=== PATIENT | male | born 1945 | race Caucasian/White ===

== ENCOUNTER 2022-12-26 10:05 | Observation (INO) ==
--- NOTE | 2022-12-26 11:02 | Emergency Department Note ---
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 fib on Eliquis who presents to the ER for shortness of breath. He notes he is feeling very weak and rundown with any kind of exertion. This has been going on for the past week. This generally feels consistent with his previous bouts of A. fib. Denies any chest pain. No belly pain, nausea, vomiting, or diarrhea. No dysuria, urgency, or frequency. No other exacerbating or remitting factors. He recently just moved here to the area. PAST MEDICAL HISTORY:See Below PAST SURGICAL HISTORY:See Below FAMILY HISTORY:See Below SOCIAL HISTORY:See Below HOME MEDICATIONS:See Below ALLERGIES:See Below VITALS:See Below PHYSICAL EXAMINATION: GENERAL: Sitting up in bed, alert, well appearing, well nourished, no distress, non-toxic EYE EXAM: normal conjunctiva. PERRL and EOM's grossly intact. OROPHARYNX: no exudate, no erythema, lips, buccal mucosa, and tongue normal and mucous membranes are moist NECK: supple, no nuchal rigidity, no adenopathy, non-tender LUNGS: Clear to auscultation. Normal chest wall mechanics HEART: Irregular regular, S1 normal and S2 normal ABDOMEN: abdomen soft, non-tender, normo-active bowel sounds, no masses, no rebound or guarding. UPPER EXTREMITIES: upper extremities are grossly normal. LOWER EXTREMITIES: No pitting edema. NEURO EXAM: Normal sensorium, cranial nerves II-XII grossly intact, normal speech, no gross weakness of arms, no gross weakness of legs. No drift. Finger to nose intact. Gross sensation intact. MEDICAL DECISION MAKING: Patient is a 77-year-old male who presents the ER for feeling irregular heartbeat referred in by his PCP. IV was established blood work was obtained. Labs show no significant leukocytosis or anemia. BMP with a slightly elevated glucose at 178. LFTs was unremarkable. Troponin was negative. Lipase is normal. COVID-negative. EKG consistent with A. fib. Chest x-ray was unrem arkable. Patient was updated at bedside. He is fairly rate controlled while sitting but notes that he gets significantly short of breath with exertion and is normally in a sinus rhythm. Based on this I discussed case with Dr. Marcus Savage for further evaluation. Also discussed with case management in regards to presentation work-up and further management. Triage Nursing notes reviewed. Limited review of prior medical records performed Vital Signs: reviewed and remarkable for tachy Differential diagnosis: Cardiac ischemia, aortic dissection, pulmonary embolism, pneumothorax, pneumonia, pericarditis, myocarditis, esophageal rupture, GERD, cholecystitis, pancreatitis, musculoskeletal, as well as other pathologies. ER treatment provided: See below Diagnostics interpreted by me include EKG and cardiac monitoring as listed below: -Cardiac Monitoring: An order was placed for continuous cardiac monitoring. The monitor shows a rate of 110 with sinus rhythm. -ECG: A. fib rate 86 Normal axis No PVCs QTC 449 T wave inversion in septal leads -Laboratory studies:Interpreted by me as stated above in MDM and shown below. Imaging studies: Xrays: As interpreted by me: Portable AP upright 1 view of the chest shows no focal infiltrate per my read CTs show: none Consultation(s): Discussed with Marcus Savage for further evaluation treatment and management from the inpatient standpoint with the A. fib and shortness of breath with exertion Procedures:none Critical Care: None Past Med/Surg History Medical History A-fib GERD (gastroesophageal reflux disease) detention current use of anticoagulant Obstructive sleep apnea Spondylarthritis Surgical History No significant past surgical history Social History Smoking Status: Never smoker Feels Safe at Home: Yes Allergies Allergies Allergy/AdvReac Type Severity Reaction Status Date / Time No Known Allergies Allergy Unverified 12/26/22 12:46 Home Meds Home Medications Medication Instructions Recorded Confirmed apixaban 2.5 mg tablet (Eliquis) 2.5 mg PO BID 12/26/22 12/26/22 bupropion HCl 300 mg 24 hr tablet, 300 mg PO QAM 12/26/22 12/26/22 extended release cholecalciferol (vitamin D3) 125 125 mcg PO DAILY 12/26/22 12/26/22 mcg (5,000 unit) tablet (Vitamin D3) duloxetine 30 mg capsule,delayed 30 mg PO QAM 12/26/22 12/26/22 release escitalopram oxalate 10 mg tablet 10 mg PO DAILY 12/26/22 12/26/22 fexofenadine 180 mg tablet 180 mg PO DAILY 12/26/22 12/26/22 (Reina Allergy) hydrocodone 5 mg-acetaminophen 325 1 tab PO TID 12/26/22 12/26/22 mg tablet lansoprazole 30 mg capsule,delayed 30 mg PO QPM 12/26/22 12/26/22 release metoprolol tartrate 25 mg tablet 25 mg PO BID 12/26/22 12/26/22 multivitamin 1 tab PO DAILY 12/26/22 12/26/22 polyethylene glycol 3350 17 gram 17 g PO BID 12/26/22 12/26/22 oral powder packet (Miralax) psyllium husk 0.4 gram capsule 0 g PO DAILY 12/26/22 12/26/22 terazosin 5 mg capsule 5 mg PO BID 12/26/22 12/26/22 testosterone 10 mg/0.5 1 pump topical DAILY 12/26/22 12/26/22 gram/actuation transdermal gel pump Results & Data (ED) Vital Signs Vital Signs - 24 hr 12/26/22 10:11 12/26/22 10:57 12/26/22 10:27 Temperature 36.8 C Temperature Source Temporal Artery Scan Pulse Rate 103 H 112 H 89 Pulse Rhythm Regular Irregular Pulse Strength Normal Respiratory Rate 20 22 21 Respiratory Effort / Characteristics Non-Labored Spontaneous Respiratory Depth Normal Respiratory Pattern Regular Blood Pressure 102/66 Blood Pressure Mean 78 Blood Pressure Position Sitting Pulse Oximetry 96 94 94 Oxygen Delivery Method Room Air Room Air Room Air Sepsis Recent Fever Within 48 Hours No Sepsis New/Unexplained Change in Mental Status N/A Sepsis Action Taken by Nursing No Action Required 12/26/22 10:30 12/26/22 10:30 12/26/22 10:40 Temperature Temperature Source Pulse Rate 107 H 107 H Pulse Rhythm Pulse Strength Respiratory Rate 23 17 Respiratory Effort / Characteristics Respiratory Depth Respiratory Pattern Blood Pressure 111/63 Blood Pressure Mean 79 Blood Pressure Position Pulse Oximetry 94 94 Oxygen Delivery Method Room Air Room Air Sepsis Recent Fever Within 48 Hours Sepsis New/Unexplained Change in Mental Status Sepsis Action Taken by Nursing 12/26/22 10:50 12/26/22 11:00 12/26/22 11:00 Temperature Temperature Source Pulse Rate 137 H 116 H Pulse Rhythm Pulse Strength Respiratory Rate 22 22 Respiratory Effort / Characteristics Respiratory Depth Respiratory Pattern Blood Pressure 122/72 Blood Pressure Mean 88 Blood Pressure Position Pulse Oximetry 94 94 Oxygen Delivery Method Room Air Room Air Sepsis Recent Fever Within 48 Hours Sepsis New/Unexplained Change in Mental Status Sepsis Action Taken by Nursing Laboratory Data 12/26/22 10:25 12/26/22 10:25 Lab Results 12/26/22 12/26/22 12/26/22 Range/Units 10:25 10:25 10:25 WBC 6.40 (4.8-10.8) K/ul RBC 4.29 L (4.70-6.10) M/uL Hgb 14.0 (14.0-18.0) g/dl Hct 40.5 L (42.0-52.0) % MCV 94.4 (80.0-100.0) fL MCH 32.6 (25.0-34.0) pg MCHC 34.6 (32.0-36.0) g/dL RDW Std Deviation 44.9 (36.4-46.3) fL RDW Coeff of Phill 13.0 (11.5-14.5) % Plt Count 196 (130-400) K/uL MPV 8.9 L (9.4-12.4) fL Immature Gran % (Auto) 0.3 % Neut % (Auto) 61.6 % Lymph % (Auto) 25.0 % Menard % (Auto) 8.6 % Eos % (Auto) 3.9 % Baso % (Auto) 0.6 % Neut # (Auto) 3.94 (1.40-6.50) K/uL Lymph # (Auto) 1.60 (1.2-3.4) K/uL Menard # (Auto) 0.55 (0.11-0.59) K/uL Eos # (Auto) 0.25 (0-0.50) K/uL Baso # (Auto) 0.04 (0-0.2) K/uL Immature Gran # (Auto) 0.02 (0.01-0.20) K/uL Sodium 136 (136-145) mmol/L Potassium 4.7 (3.5-5.1) mmol/L Chloride 101 (98-107) mmol/L Carbon Dioxide 27 (21-32) mmol/L Anion Gap 8 (3-11) BUN 17 (6-23) mg/dl Creatinine 0.77 (0.6-1.4) mg/dl Est Cr Clr Drug Dosing 108.8 ml/min Est GFR ( Amer) 101.5 ml/min Est GFR (Non-Af Amer) 87.5 ml/min BUN/Creatinine Ratio 22.1 H (10-20) Glucose 178 H (70-99(Fasting)) mg/dl Calcium 9.1 (8.5-10.1) mg/dl Total Bilirubin 0.4 (0.2-1.0) mg/dl AST 25 (13-39) U/L ALT 32 (7-52) U/L Alkaline Phosphatase 65 (34-104) U/L Troponin I High Sens 6.6 (0-20) pg/ml Total Protein 6.6 (6.0-8.3) gm/dl Albumin 4.3 (3.4-5.0) gm/dl Globulin 2.3 L (2.5-4.0) gm/dl Albumin/Globulin Ratio 1.9 (0.9-2) Lipase 14 (11-82) U/L TSH 5.530 H (0.300-4.500) uIu/ml Free T4 0.60 L (0.61-1.60) ng/dl SARS-CoV-2, RNA, NAAT (NEGATIVE) 12/26/22 Range/Units 12:20 WBC (4.8-10.8) K/ul RBC (4.70-6.10) M/uL Hgb (14.0-18.0) g/dl Hct (42.0-52.0) % MCV (80.0-100.0) fL MCH (25.0-34.0) pg MCHC (32.0-36.0) g/dL RDW Std Deviation (36.4-46.3) fL RDW Coeff of Phill (11.5-14.5) % Plt Count (130-400) K/uL MPV (9.4-12.4) fL Immature Gran % (Auto) % Neut % (Auto) % Lymph % (Auto) % Menard % (Auto) % Eos % (Auto) % Baso % (Auto) % Neut # (Auto) (1.40-6.50) K/uL Lymph # (Auto) (1.2-3.4) K/uL Menard # (Auto) (0.11-0.59) K/uL Eos # (Auto) (0-0.50) K/uL Baso # (Auto) (0-0.2) K/uL Immature Gran # (Auto) (0.01-0.20) K/uL Sodium (136-145) mmol/L Potassium (3.5-5.1) mmol/L Chloride (98-107) mmol/L Carbon Dioxide (21-32) mmol/L Anion Gap (3-11) BUN (6-23) mg/dl Creatinine (0.6-1.4) mg/dl Est Cr Clr Drug Dosing ml/min Est GFR ( Amer) ml/min Est GFR (Non-Af Amer) ml/min BUN/Creatinine Ratio (10-20) Glucose (70-99(Fasting)) mg/dl Calcium (8.5-10.1) mg/dl Total Bilirubin (0.2-1.0) mg/dl AST (13-39) U/L ALT (7-52) U/L Alkaline Phosphatase (34-104) U/L Troponin I High Sens (0-20) pg/ml Total Protein (6.0-8.3) gm/dl Albumin (3.4-5.0) gm/dl Globulin (2.5-4.0) gm/dl Albumin/Globulin Ratio (0.9-2) Lipase (11-82) U/L TSH (0.300-4.500) uIu/ml Free T4 (0.61-1.60) ng/dl SARS-CoV-2, RNA, NAAT NEGATIVE (NEGATIVE) Administered Medications Magnesium Sulfate/Dextrose (Magnesium Sulfate / D5w) 1 gm in 100 mls @ 50 mls/hr IV Q2H EZEQUIEL Stop: 12/26/22 17:14 Last Admin: 12/26/22 13:53 Dose: 50 mls/hr Documented By: ARS Imaging Data Radiologist's Impression: Chest X-Ray 12/26/22 10:52 XR chest 1V portable HISTORY: Chest pain, nonspecific COMPARISON: Chest 10/29/2022. FINDINGS: The cardiac silhouette remains top normal in size. Mild diffuse interstitial thickening persists. This is likely chronic. No new focal lung consolidations to suggest a pneumonia. No evidence for pulmonary edema. No pneumothorax. No pleural effusions. Tortuous thoracic aorta again noted. Postoperative changes within the right shoulder. IMPRESSION: No significant change compared to the prior study. No acute process. ACT 112: Negative or not required by law. Electronically signed by: Javier Valdivia M.D. 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
[2022-12-26 11:10] LABS: Basophils # (auto) 0.04 K/uL (0-0.2); Basophils % (auto) 0.6 %; Eosinophils # (auto) 0.25 K/uL (0-0.50); Eosinophils % (auto) 3.9 %; Hematocrit (blood only) 40.5 % (42.0-52.0); Immature Granulocytes # (auto) 0.02 K/uL (0.01-0.20); Immature Granulocytes % (auto) 0.3 %; Mean Corpuscular Hemoglobin 32.6 pg (25.0-34.0); Mean Corpuscular Hgb Conc 34.6 g/dL (32.0-36.0); Mean Corpuscular Volume 94.4 fL (80.0-100.0); Mean Platelet Volume 8.9 fL (9.4-12.4); Monocytes # (auto) 0.55 K/uL (0.11-0.59); Monocytes % (auto) 8.6 %; Neutrophils # (auto) 3.94 K/uL (1.40-6.50); Neutrophils % (auto) 61.6 %; Platelet Count 196 K/uL (130-400); RDW Standard Deviation 44.9 fL (36.4-46.3); Red Blood Count 4.29 M/uL (4.70-6.10)
--- NOTE | 2022-12-26 11:21 | XRay Report ---
XR chest 1V portable HISTORY: Chest pain, nonspecific COMPARISON: Chest 10/29/2022. FINDINGS: The cardiac silhouette remains top normal in size. Mild diffuse interstitial thickening per sists. This is likely chronic. No new focal lung consolidations to suggest a pneumonia. No evidence f or pulmonary edema. No pneumothorax. No pleural effusions. Tortuous thoracic aorta again noted. Posto perative changes within the right shoulder. IMPRESSION: No significant change compared to the prior study. No acute process. ACT 112: Negative or not required by law. Electronically signed by: Javier Valdivia M.D. 12/26/2022 11:20 AM
[2022-12-26 11:28] LABS: Troponin I High Sensitivity 6.6 pg/ml (0-20)
[2022-12-26 11:32] LABS: Albumin Level 4.3 gm/dl (3.4-5.0); Bilirubin,Total 0.4 mg/dl (0.2-1.0); Calcium 9.1 mg/dl (8.5-10.1); Potassium 4.7 mmol/L (3.5-5.1)
[2022-12-26 11:38] LABS: Albumin Globulin Ratio 1.9 (0.9-2); BUN Creatinine Ratio 22.1 (10-20); Creatinine Clr Calc Pharmacy 108.8 ml/min; Est GFR (African American) 101.5 ml/min; Est GFR (Non-African American) 87.5 ml/min; Globulin 2.3 gm/dl (2.5-4.0); Total Protein 6.6 gm/dl (6.0-8.3)
--- NOTE | 2022-12-26 13:07 | History & Physical Report ---
Date of Service December 26, 2022 Assessment & Plan (1) A-fib: Plan: Known paroxysmal atrial fibrillation Unfortunately not taking a full dose of Eliquis therefore goal would be to rate control only without a TOM and he seems to be symptomatic even with normal rates suggesting need for TOM and cardioversion if he does not spontaneously convert. Will increase metoprolol to 50mg PO BID to see if reduced rate helps his symptoms. I suspect he would benefit more from rhythm control once cardioverted since he is quite symptomatic at normal rates and no specific trigger identified causing this episode - consider flecainide if TTE normal and pt undergoes TOM cardiovers ion. Aim Mg > 2 and K > 4 TSH and TTE NPO after midnight and consult cardiology in AM for possible TOM cardioversion (2) Shortness of breath on exertion: Plan: Slight concern for ischemic cause of this exertional symptom although suspect more related to demand with a. fib Trend troponins overnight and consult cardiology in AM to assess need for watchful waiting to assess symptoms not in a. fib vs. stress testing vs. cardiac cath (3) GERD (gastroesophageal reflux disease): Plan: Switch lansoprazole to pantoprazole per hospital formulary (4) Obstructive sleep apnea: Plan: May use his own CPAP (5) Spondylarthritis: Plan: Takes hydrocodone regularly 3 times daily. Continue this during his inpatient admission. (6) Depression: Plan: Continue his usual duloxetine, escitalopram, bupropion Plan VTE prophylaxis - Eliquis Diet - heart healthy, n.p.o. after midnight Disposition - observation status to [facility] with telemetry Admission and Anticipated Discharge Date Admission Date: December 26, 2022 History of Present Illness Chief Complaint: Fatigue. Shortness of breath and dizziness on exertion Primary Care Provider: Adonay Ritchie MD Juan Diego Tomas is a 77-year-old male with known paroxysmal atrial fibrillation who presents to the ER with 1 week of shortness of breath and dizziness on exertion with associated fatigue. He has known paroxysmal atrial fibrillation for 8 years and has felt similar with his atrial fibrillation episodes in the past. He recently moved here from [facility] [place] and is yet to establish with cardiology. He reports multiple hospitalizations in [facility] [place] where he would spontaneously convert while hospitalized and will remain on the same medications. He denies ever being on flecainide or other antiarrhythmic agents. He is currently taking Eliquis 2.5 mg p.o. twice daily. On discussion with his PCP this was a dose copied from his previous provider but no known reason he should be on this lower dose. Per external med rec he was being prescribed 5 mg p.o. twice daily by his previous provider. Allergies Allergy/AdvReac Type Severity Reaction Status Date / Time No Known Allergies Allergy Unverified 12/26/22 12:46 Home Medications Medication Instructions Recorded Confirmed Type apixaban 2.5 mg tablet (Eliquis) 2.5 mg PO BID 12/26/22 12/26/22 History bupropion HCl 300 mg 24 hr tablet, 300 mg PO QAM 12/26/22 12/26/22 History extended release cholecalciferol (vitamin D3) 125 125 mcg PO DAILY 12/26/22 12/26/22 History mcg (5,000 unit) tablet (Vitamin D3) duloxetine 30 mg capsule,delayed 30 mg PO QAM 12/26/22 12/26/22 History release escitalopram oxalate 10 mg tablet 10 mg PO DAILY 12/26/22 12/26/22 History fexofenadine 180 mg tablet 180 mg PO DAILY 12/26/22 12/26/22 History (Reina Allergy) hydrocodone 5 mg-acetaminophen 325 1 tab PO TID 12/26/22 12/26/22 History mg tablet lansoprazole 30 mg capsule,delayed 30 mg PO QPM 12/26/22 12/26/22 History release metoprolol tartrate 25 mg tablet 25 mg PO BID 12/26/22 12/26/22 History multivitamin 1 tab PO DAILY 12/26/22 12/26/22 History polyethylene glycol 3350 17 gram 17 g PO BID 12/26/22 12/26/22 History oral powder packet (Miralax) psyllium husk 0.4 gram capsule 0 g PO DAILY 12/26/22 12/26/22 History terazosin 5 mg capsule 5 mg PO BID 12/26/22 12/26/22 History testosterone 10 mg/0.5 1 pump topical DAILY 12/26/22 12/26/22 History gram/actuation transdermal gel pump Past Med/Surg History Medical History A-fib Anxiety Chronic back pain Depression GERD (gastroesophageal reflux disease) History of intestinal obstruction alf current use of anticoagulant Male hypogonadism Obstructive sleep apnea Spondylarthritis Surgical History History of rotator cuff surgery History of spinal surgery Social History Smoking Status: Former smoker Smoking End Date: 2004; Second Hand Exposure: No; Do You Dip or Chew Tobacco: No; Hx Alcohol Use: No Hx Substance Use: No Preferred Language: Finnish Communication Ability: Effective Service Clerk Required: No Beliefs That Will Affect Care: None Current Living Situation: Alone Other Information That Helps Us Care for You: No Feels Safe at Home: Yes Assistive Devices: CPAP, Glasses and Hearing Aid - Bilateral Review of Systems Review of Systems: All systems reviewed & are unremarkable except as noted in HPI & below Physical Exam Constitutional: WD/WN, vitals as above Eyes: + anicteric sclerae; normal pupil size Respiratory: normal respiratory effort, lungs clear to auscultation Cardiovascular: Rate/Rhythm: regular rate and + irregularly irregular Heart Sounds: no murmur Extremities: normal capillary refill and + pedal edema (Trace pitting bilateral equal); no calf tenderness Gastrointestinal (Abdomen): normal bowel sounds, soft, nontender, no hepatosplenomegaly Musculoskeletal: no cyanosis or clubbing, extremities motor strength 5/5 Skin: no rashes, warm and dry Neurologic: moves all extremities and awake; not confused Psychiatric: A+Ox3, euthymic affect Results & Data Results & Data ([facility]) Vital Signs (Past 12 Hours) Vital Signs Temp Pulse Resp BP Pulse Ox O2 Del Method 12/26/22 11:00 116 H 22 94 Room Air 12/26/22 11:00 122/72 12/26/22 10:50 137 H 22 94 Room Air 12/26/22 10:40 107 H 17 94 Room Air 12/26/22 10:30 107 H 23 94 Room Air 12/26/22 10:30 111/63 12/26/22 10:27 89 21 94 Room Air 12/26/22 10:57 112 H 22 94 Room Air 12/26/22 10:11 36.8 C 103 H 20 102/66 96 Room Air Laboratory Results Abnormal lab results 01/30/23 01/30/23 01/30/23 Range/Units 10:25 10:25 10:25 RBC 4.29 L (4.70-6.10) M/uL Hct 40.5 L (42.0-52.0) % MPV 8.9 L (9.4-12.4) fL BUN/Creatinine Ratio 22.1 H (10-20) Glucose 178 H (70-99(Fasting)) mg/dl Globulin 2.3 L (2.5-4.0) gm/dl TSH 5.530 H (0.300-4.500) uIu/ml Free T4 0.60 L (0.61-1.60) ng/dl Diagnostic Findings XR chest 1V portable HISTORY: Chest pain, nonspecific COMPARISON: Chest 10/29/2022. FINDINGS: The cardiac silhouette remains top normal in size. Mild diffuse interstitial thickening persists. This is likely chronic. No new focal lung consolidations to suggest a pneumonia. No evidence for pulmonary edema. No pneumothorax. No pleural effusions. Tortuous thoracic aorta again noted. Posto perative changes within the right shoulder. IMPRESSION: No significant change compared to the prior study. No acute process. Medications Administered ER medications given: None ECG Indication: SOB/dyspnea Rate (beats per minute): 86 Rhythm: atrial fibrillation Findings: + other (Poor R wave progression) Comparison ECG Date: no prior available Code Status & VTE Plan Code Status Full VTE Prophylaxis Plan VTE Prophylaxis will be ordered: Yes PG Care Time/CCT Total # of Minutes Spent Total Time Spent with Patient: Total time spent is greater than 50% in coordination of care (as documented) at patient's floor/unit and/or counseling patient: Coding Level of Care Code 26882 INT INP/OBS CARE 2/55MIN Diagnoses A-fib I48.91 Shortness of breath on exertion R06.02 GERD (gastroesophageal reflux disease) K21.9 Obstructive sleep apnea G47.33 Spondylarthritis M47.819 Depression F32.A
[2022-12-26 13:51] LABS: Thyroid Stimulating Hormone 5.53 uIu/ml (0.300-4.500)
[2022-12-26] MEDS: MAGNESIUM SULFATE / D5W 1 GM/100 ML BAG IV SCH ×2 (13:53→15:57)
--- NOTE | 2022-12-26 14:36 | Electrocardiogram Report ---
Test Reason : Blood Pressure : / mmHG Vent. Rate : 086 BPM Atrial Rate : 088 BPM P-R Int : 000 ms QRS Dur : 082 ms QT Int : 376 ms P-R-T Axes : 000 -14 045 degrees QTc Int : 449 ms Atrial fibrillation Low voltage QRS Poor R wave progression, consider anterior LA vs. lead placement vs. LVH Abnormal ECG When compared with ECG of 09-APR-1997 14:09, Atrial fibrillation has replaced Sinus rhythm Minimal criteria for Anterior infarct are now Present T wave amplitude has decreased in Anterior leads Confirmed by Jose Manuel Deleon ([id number]) on 12/26/2022 2:36:12 PM Referred By: REFERRED SELF Confirmed By:Jose Manuel Deleon
[2022-12-26 15:12] LABS: T4 Free Thyroxine 0.6 ng/dl (0.61-1.60)
[2022-12-26] MEDS ORDERED: METOPROLOL TARTRATE 25 MG TAB PO ONE (15:15)
[2022-12-26] MEDS ORDERED: ACETAMINOPHEN 325 MG TAB PO PRN (15:25)
--- NOTE | 2022-12-26 15:35 | XCELERA ---
[id number]
[2022-12-26] MEDS: HYDROCODONE/ACETAMOPHEN 5/325MG TAB PO SCH ×2 (16:33→21:54)
[2022-12-26] MEDS ORDERED: PANTOprazole 40 MG TAB PO SCH (21:00)
[2022-12-26] MEDS ORDERED: METOPROLOL TARTRATE 25 MG TAB PO SCH (21:00)
[2022-12-26] MEDS: TERAZOSIN HCL 5 MG CAP PO SCH (21:55)
[2022-12-26] MEDS: APIXABAN 5 MG TABLET PO SCH (21:55)
[2022-12-26] MEDS: METOPROLOL TARTRATE 50 MG TAB PO SCH (21:55)
[2022-12-26] MEDS: POLYETHYLENE (MIRALAX) 17 GM PACK PO SCH (21:56)
[2022-12-27 06:46] LABS: Basophils # (auto) 0.04 K/uL (0-0.2); Basophils % (auto) 0.6 %; Eosinophils # (auto) 0.28 K/uL (0-0.50); Eosinophils % (auto) 4.2 %; Hemoglobin 13.6 g/dl (14.0-18.0); Immature Granulocytes # (auto) 0.02 K/uL (0.01-0.20); Immature Granulocytes % (auto) 0.3 %; Lymphocytes # (auto) 1.96 K/uL (1.2-3.4); Lymphocytes % (auto) 29.2 %; Mean Corpuscular Hemoglobin 32.2 pg (25.0-34.0); Mean Corpuscular Volume 94.6 fL (80.0-100.0); Monocytes # (auto) 0.62 K/uL (0.11-0.59); Monocytes % (auto) 9.2 %; Neutrophils # (auto) 3.79 K/uL (1.40-6.50); Neutrophils % (auto) 56.5 %; Platelet Count 195 K/uL (130-400); RDW Standard Deviation 44.7 fL (36.4-46.3); Red Blood Count 4.23 M/uL (4.70-6.10); White Blood Count 6.71 K/ul (4.8-10.8)
[2022-12-27 07:02] LABS: BUN Creatinine Ratio 21.1 (10-20); Calcium 8.9 mg/dl (8.5-10.1); Magnesium 1.9 mg/dl (1.7-2.4); Potassium 4.4 mmol/L (3.5-5.1)
[2022-12-27 07:07] LABS: INR 1.1 (0.9-1.1); Prothrombin Time 11.4 Seconds (9.0-12.0)
[2022-12-27] MEDS: TERAZOSIN HCL 5 MG CAP PO SCH (07:45)
[2022-12-27] MEDS: APIXABAN 5 MG TABLET PO SCH (07:46)
[2022-12-27] MEDS: METOPROLOL TARTRATE 50 MG TAB PO SCH (07:46)
[2022-12-27] MEDS: POLYETHYLENE (MIRALAX) 17 GM PACK PO SCH (07:47)
[2022-12-27] MEDS: HYDROCODONE/ACETAMOPHEN 5/325MG TAB PO SCH (08:21)
[2022-12-27] MEDS ORDERED: MULTIVITAMIN TAB PO SCH (09:00)
[2022-12-27] MEDS ORDERED: CHOLECALCIFEROL 5,000 UNITS 125 MCG TAB PO SCH (09:00)
[2022-12-27] MEDS ORDERED: DULoxetine HCL 30 MG CAP PO SCH (09:00)
[2022-12-27] MEDS ORDERED: ESCITALOPRAM OXALATE 10 MG TAB PO SCH (09:00)
[2022-12-27] MEDS ORDERED: buPROPion XL 300 MG TABCR PO SCH (09:00)
[2022-12-27] MEDS ORDERED: FEXOFENADINE HCL 180 MG TAB PO SCH (09:00)
--- NOTE | 2022-12-27 12:04 | Cardiology Consultation ---
Date of Consultation December 27, 2022 Assessment & Plan (1) PAF (paroxysmal atrial fibrillation): -patient likely in atrial fibrillation for 1 week leading up to presentation. -his rate was well controlled when evaluated in the emergency room despite symptoms. -agree with increasing metoprolol tartrate to 50 mg b.i.d. -could consider a trial of an antiarrhythmic such as flecainide. -uncertain what dose of Eliquis he was taking as an outpatient. -agree with increasing Eliquis to 5 mg b.i.d. -decide on anti arrhythmic therapy after 3 full weeks of proper Eliquis does. -follow-up with me in 2-3 weeks. -stable for hospital discharge. (2) skilled nursing current use of anticoagulant: -as above, uncertain as to his outpatient dose of Eliquis. -appropriate doses Eliquis 5 mg b.i.d. History of Present Illness Attending Physician: Mark Corral MD History of Present Illness Mr. Tomas is a 77-year-old male admitted yesterday with symptomatic atrial fibrillation. This consultation was ordered to assistance cardiac management. 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 The patient was in his usual state of health until approximately 1 week prior to presentation. He began to note significant exertional dyspnea and exertional fatigue. This was very reminiscent of prior episodes of atrial fibrillation. He eventually presented to the emergency room yesterday due to his symptoms. He was found to be in atrial fibrillation with a controlled ventricular response at the time of his evaluation in the emergency. His metoprolol tartrate was increased to 50 mg b.i.d. and Eliquis was increased to 5 mg b.i.d.. Hospitalization was recommended. Fortunately, at 10:45 a.m. this morning, the patient spontaneously converted to sinus rhythm. He noted immediate improvement in his overall sense of well- being. There is confusion over his outpatient dose of Eliquis. Clearly, he needs to be on a full strength. He has never known of a cardiac event. He has never had a cardiac catheterization. Before falling ill as described above, the patient was performing daily aerobic exercises. At no time has he experienced exertional chest pain or limiting dyspnea. He further denies syncope, presyncope, PND, orthopnea, lower extremity edema, and claudication. Currently, patient is resting comfortably in bed without complaints. Past medical and surgical history 1. Paroxysmal atrial fibrillation 2. GERD 3. Irritable bowel syndrome 4. Obstructive sleep apnea 5. Chronic low back pain 6. Spondyloarthritis 7. BPH 8. Hypogonadism 9. Anxiety/depression 10. Rotator cuff repair Social history , lives alone. Moving to [facility]. 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 No tobacco alcohol Family history Mother at 63 complications of diabetes Father at 63 from a cerebral aneurysm A sister had breast cancer Review of systems A 10 review systems was undertaken and negative except that described above. Allergies Allergy/AdvReac Type Severity Reaction Status Date / Time No Known Allergies Allergy Unverified 12/26/22 12:46 Home Medications Medication Instructions Recorded Confirmed Type bupropion HCl 300 mg 24 hr tablet, 300 mg PO QAM 12/26/22 12/26/22 History extended release cholecalciferol (vitamin D3) 125 125 mcg PO DAILY 12/26/22 12/26/22 History mcg (5,000 unit) tablet (Vitamin D3) duloxetine 30 mg capsule,delayed 30 mg PO QAM 12/26/22 12/26/22 History release escitalopram oxalate 10 mg tablet 10 mg PO DAILY 12/26/22 12/26/22 History fexofenadine 180 mg tablet 180 mg PO DAILY 12/26/22 12/26/22 History (Reina Allergy) hydrocodone 5 mg-acetaminophen 325 1 tab PO TID 12/26/22 12/26/22 History mg tablet lansoprazole 30 mg capsule,delayed 30 mg PO QPM 12/26/22 12/26/22 History release multivitamin 1 tab PO DAILY 12/26/22 12/26/22 History polyethylene glycol 3350 17 gram 17 g PO BID 12/26/22 12/26/22 History oral powder packet (Miralax) psyllium husk 0.4 gram capsule 0 g PO DAILY 12/26/22 12/26/22 History terazosin 5 mg capsule 5 mg PO BID 12/26/22 12/26/22 History testosterone 10 mg/0.5 1 pump topical DAILY 12/26/22 12/26/22 History gram/actuation transdermal gel pump apixaban 5 mg tablet (Eliquis) 5 mg PO BID #120 tabs 12/27/22 Rx metoprolol tartrate 50 mg tablet 50 mg PO BID #120 tabs 12/27/22 Rx Patient History Medical History A-fib Anxiety Chronic back pain Depression GERD (gastroesophageal reflux disease) History of intestinal obstruction skilled nursing current use of anticoagulant Male hypogonadism Obstructive sleep apnea Spondylarthritis Surgical History History of rotator cuff surgery History of spinal surgery Social History Smoking Status: Former smoker Second Hand Exposure: No; Hx Alcohol Use: No Hx Substance Use: No Preferred Language: Australian Communication Ability: Effective 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 HEENT exam is negative. Neck is supple with full carotid upstrokes. No carotid bruits. Jugular is pressure is flat at 90. There is no thyromegaly. Cardiovascular exam reveals a regular rhythm with distant heart sounds. No obvious murmurs. No S3. Lungs are clear without rales, rhonchi, or wheezes. Abdomen is obese without bruits. Extremities reveal intact radial artery pulses bilaterally. There is no peripheral edema. Results & Data ([facility]) Vital Signs (Past 12 Hours) Vital Signs Temp Pulse Resp BP Pulse Ox O2 Del Method 12/27/22 11:31 36.4 C L 63 16 102/66 95 Room Air 12/27/22 07:50 36.4 C L 69 17 120/76 95 Room Air 12/27/22 03:26 36.3 C L 64 20 112/76 94 Room Air Laboratory Results CBC notes hemoglobin 13.6, hematocrit 40.0, white count 6.7, and platelet count [id number]. Electrolytes note a sodium of 138, potassium 4.4, chloride 102, bicarb 29, BUN 16, creatinine 0.76, and glucose of 133. Magnesium level is normal 1.9. Initial high sensitivity troponin was 6.6 with follow-up values of 5.4, 5.8, and 6.7. Diagnostic Findings EKG noted atrial fibrillation with low voltage and poor R-wave progression. personnel monitor notes conversion to sinus rhythm at 10:44 a.m. this morning. Echocardiogram notes normal systolic function with ejection fraction of 60-65%. There is borderline LVH and no valvular pathology. No prior study for comparison. 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
--- NOTE | 2022-12-27 17:55 | Discharge Summary ---
Date of Service December 27, 2022 Admission HPI Per Admitting Provider Fabianohneny Tomas is a 77-year-old male with known paroxysmal atrial fibrillation who presents to the ER with 1 week of shortness of breath and dizziness on exertion with associated fatigue. He has known paroxysmal atrial fibrillation for 8 years and has felt similar with his atrial fibrillation episodes in the past. He recently moved here from [facility] and is yet to establish with cardiology. He reports multiple hospitalizations in [facility] where he would spontaneously convert while hospitalized and will remain on the same medications. He denies ever being on flecainide or other antiarrhythmic agents. He is currently taking Eliquis 2.5 mg p.o. twice daily. On discussion with his PCP this was a dose copied from his previous provider but no known reason he should be on this lower dose. Per external med rec he was being prescribed 5 mg p.o. twice daily by his previous provider. Principal Diagnosis Atrial fibrillation with rapid ventricular response Discharge Data Allergies Allergy/AdvReac Type Severity Reaction Status Date / Time No Known Allergies Allergy Unverified 12/26/22 12:46 Consultations 12/26/22 13:28 ED Decision to Admit Stat 12/26/22 18:51 Consult Cardiology Routine Hospital Course (1) A-fib: Known paroxysmal atrial fibrillation Unfortunately not taking a full dose of Eliquis therefore goal would be to rate control only without a TOM and he seems to be symptomatic even with normal rates suggesting need for TOM and cardioversion if he does not spontaneously convert. Seen by consulted cardiology dose of metoprolol increased to 50 mg twice daily, the dose of apixaban was increased to 5 mg twice daily, patient discharged home to follow-up with a general hardware salesperson in 1 months patient was provided with the conta ct information of the consulting cardiology (2) Shortness of breath on exertion: Slight concern for ischemic cause of this exertional symptom although suspect more related to demand with a. fib Possibly secondary to uncontrolled A. fib, upon my exam the heart rate was controlled, patient did not have any shortness of breath, no further recommendation from general hardware salesperson other than increase the dose of metoprolol to 50 mg twice daily and increase the dose of apixaban to 5 mg twice daily (3) GERD (gastroesophageal reflux disease): Continue PPI (4) Obstructive sleep apnea: May use his own CPAP (5) Spondylarthritis: Takes hydrocodone regularly 3 times daily. Continue this during his inpatient admission. (6) Depression: Continue his usual duloxetine, escitalopram, bupropion Plan VTE prophylaxis - Eliquis Diet - heart healthy, n.p.o. after midnight Disposition - observation status to [facility] with telemetry Total Time Total Time Spent Total Time Spent (In Minutes): 45 Discharge Plan Discharge Items Patient Disposition: Home - Self-Care Reason For Visit: A. 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 Call non-emergency contact if: you have any medication questions and your symptoms worsen Follow-up/Referrals: Jose Manuel Deleon MD [Physician] - 01/06/23 1:00 pm (will see Renuka) Shabbir Ritchie [Primary Care Provider] - Diet: Heart Healthy Addtl Attending Provider Instructions: please follow with the general hardware salesperson as you instructed Pending Studies at Discharge: No Stand-Alone Forms: My [facility], Smoking Cessation Medications and DC Order Prescriptions: New metoprolol tartrate 50 mg Tablet 50 mg PO BID Qty: 120 0RF Eliquis 5 mg Tablet 5 mg PO BID Qty: 120 0RF Continued multivitamin Tablet 1 tab PO DAILY terazosin 5 mg capsule 5 mg PO BID polyethylene glycol 3350 [Miralax] 17 gram Powder In Packet 17 g PO BID fexofenadine [Reina Allergy] 180 mg Tablet 180 mg PO DAILY lansoprazole 30 mg capsule,delayed release(DR/EC) 30 mg PO QPM escitalopram oxalate 10 mg tablet 10 mg PO DAILY bupropion HCl 300 mg tablet extended release 24 hr 300 mg PO QAM duloxetine 30 mg capsule,delayed release(DR/EC) 30 mg PO QAM cholecalciferol (vitamin D3) [Vitamin D3] 125 mcg (5,000 unit) Tablet 125 mcg PO DAILY testosterone 10 mg/0.5 gram /actuation gel in metered-dose pump 1 pump topical DAILY psyllium husk 0.4 gram Capsule 0 g PO DAILY hydrocodone-acetaminophen 5-325 mg tablet 1 tab PO TID Rx Instructions: Initial treatment Discontinued metoprolol tartrate 25 mg tablet 25 mg PO BID Eliquis 2.5 mg tablet 2.5 mg PO BID Discharge Orders: Discharge Order (Routine); Ordered 12/27/22 Ordered By: Mark Corral Admission Data Admit Date/Time: 12/26/22 12:55 Attending Provider: Mark Corral Admit Provider: Marcus Savage Primary Care Provider: Shabbir Ritchie Other Providers: Marcus Savage ; Jose Manuel Deleon Other Interventions: Discharge Summary Assessment (RN) Last Done: 12/27/22 12:01 Coding Level of Care Code HOSP INP/OBS DISCH >30 MIN Diagnoses A-fib I48.91 Shortness of breath on exertion R06.02 GERD (gastroesophageal reflux disease) K21.9 Obstructive sleep apnea G47.33 Spondylarthritis M47.819 Depression F32.A
== END 2022-12-27 13:13 | disposition home or self-care (01) ==
LOC: EDINP 10:05 → ED 10:05 → SUATTDRO 12:55 → 2S 15:26